=== PATIENT | female | born 1980 | race African-American/Black ===

== ENCOUNTER 2020-02-20 11:33 | Emergency (ER) | payer OTHER ==
[~2020-02-20] VITALS: Ht 157.5 cm; Wt 73.0 kg
[~2020-02-20 11:33] MED LIST: FERR-212 PO; PREN-385 PO
[2020-02-20 11:45] VITALS: BP 120/87
[2020-02-20] MEDS ORDERED: NACL 0.9% 1,000 ML IV ONE (12:05)
[2020-02-20] MEDS ORDERED: ACETAMINOPHEN 325 MG TAB PO ONE (12:05)
[2020-02-20] MEDS ORDERED: ONDANSETRON 4 MG/2 ML VIAL IVP ONE (12:05)
[2020-02-20 12:39] LABS: BASOPHILS % (AUTO) 0.3 % (0.0-2.0); EOSINOPHILS % (AUTO) 0.2 % (0.0-4.0); HEMATOCRIT 39.7 % (36-48); HEMOGLOBIN 13.1 g/dL (12.0-16.0); LYMPHOCYTES # (AUTO) 0.9 K/uL (2.5-16.5); LYMPHOCYTES % (AUTO) 12.8 % (20.5-51.1); MEAN CORPUSCULAR HEMOGLOBIN 27 pg (27-31); MEAN CORPUSCULAR HGB CONC 33 g/dL (33-37); MEAN CORPUSCULAR VOLUME 81.6 fL (80-94); MONOCYTES # (AUTO) 0.6 K/uL (0.8-1.0); MONOCYTES % (AUTO) 8.3 % (1.7-9.3); NEUTROPHILS # (AUTO) 5.4 K/uL (1.8-7.7); NEUTROPHILS % (AUTO) 78.4 % (42.2-75.2); PLATELET COUNT (AUTO) 195 K/uL (140-450); RED BLOOD CELL COUNT(AUTO) 4.87 MIL/uL (4.20-5.40); RED CELL DISTRIBUTION WIDTH 15.6 % (11.6-13.7); WHITE BLOOD COUNT (AUTO) 6.9 K/uL (4.8-10.8)
[2020-02-20 12:58] LABS: ANION GAP 13.2 (8-16); CARBON DIOXIDE 24.3 mmol/L (21-32); CREATININE 0.6 mg/dL (0.6-1.3); POTASSIUM 3.5 mmol/L (3.5-5.1)
--- NOTE | 2020-02-20 13:03 | NUR ---
39 YEAR OLD FEMALE COMPLAINS OF HEADACHE AND BODYACHES X 2 DAYS. PT DENIES ANY COUGH OR SOB. PT STATES USED TO HAVE CHILLS AND SORE THROAT YESTERDAY. PT AOX4, BREATHING EVEN AND UNLABORED, SKIN WARM AND DRY. BED IN LOWEST POSITION, LOCKED, BED RAIL UPX1. PMH - DM2
--- NOTE | 2020-02-20 13:05 | NUR ---
COVID SWAB SENT TO LAB
[2020-02-20 13:46] LABS: BILIRUBIN,URINE 2+ (NEGATIVE); BLOOD, URINE 2+ (NEGATIVE); COLOR,URINE YELLOW (YELLOW); LEUKOCYTE ESTERASE ,URINE NEGATIVE (NEGATIVE); NITRITE, URINE NEGATIVE (NEGATIVE); UGLUCOSE NEGATIVE (NEGATIVE)
[2020-02-20 13:52] LABS: APPEARANCE,URINE HAZY (CLEAR)
[2020-02-20 13:54] LABS: CALCIUM OXALATE CRYSTALS,UR 0-10 /HPF (None Seen)
[2020-02-20 13:55] LABS: WBC,URINE 0-5 /HPF (0-5)
[2020-02-20 15:05] VITALS: BP 113/89
--- NOTE | 2020-02-20 15:06 | NUR ---
Patient discharged with v/s stable. Written and verbal after care instructions given and explained. Patient alert, oriented and verbalized understanding of instructions. Ambulatory with steady gait. All questions addressed prior to discharge. ID band removed. Patient advised to follow up with PMD.
== END 2020-02-20 15:06 | disposition home or self-care (01) ==
LOC: MED 11:33
DX: B34.9 Viral infection, unspecified (principal); E11.9 Type 2 diabetes mellitus without complications; Z20.828 Contact with and (suspected) exposure to other viral communicable diseases; Z98.84 Bariatric surgery status; Z79.899 Other long term (current) drug therapy
CPT/HCPCS: 71045; 80048; 81001; 81025; 83735; 85025; 93005; 96361; 96374; 99285; J2405; Q0092; U0003; J7030